=== PATIENT | female | born 1955 | race Caucasian/White ===

== ENCOUNTER 2019-10-19 16:53 | Outpatient (CLI) | payer BC, SELFPAY ==
--- NOTE | ~2019-10-19 | MM_ITS ---
EXAMINATION: MM screening [facility] w [facility] HISTORY: Screening mammogram TECHNIQUE: Craniocaudal and mediolateral oblique 3-D tomosynthesis images were obtained and synthetic 2-D images were generated. CAD analysis was submitted and interpreted. COMPARISON: 10/12/2018 bilateral digital screening mammogram 12/11/2016 diagnostic right digital mammogram and limited right breast ultrasound 12/03/2016 and 10/11/2014 bilateral digital screening mammogram examinations BREAST PARENCHYMAL COMPOSITION: The breasts are heterogeneously dense, which may obscure small masses . FINDINGS: Low-density circumscribed approximately 1.8 cm mass in the posterior mid outer right breast with halo sign, most consistent with benign cyst. There is a circumscribed 5 mm benign-appearing opacity in the upper central right breast nearby biops y marker. There is no evidence of suspicious mass, calcification, or architectural distortion to sugg est malignancy in either breast. There has been no suspicious interval change. IMPRESSION: 1. No mammographic evidence of malignancy. 2. Recommend routine screening mammography in one year. BI-RADS Category 2: Benign finding(s). Reviewed, dictated and finalized at location A. [facility]
== END 2019-10-19 16:54 | disposition home or self-care (01) ==
LOC: ANHIMG 16:56
PROVIDERS: PCP Family Medicine; Visit Provider Physician Assistant
DX: Z12.31 Encounter for screening mammogram for malignant neoplasm of breast (principal)
CPT/HCPCS: 77063; 77067

== ENCOUNTER 2020-10-18 16:22 | Outpatient (CLI) | payer BC, SELFPAY ==
--- NOTE | ~2020-10-18 | MM_ITS ---
EXAMINATION: MM screening [facility] w [facility] HISTORY: Screening TECHNIQUE: Craniocaudal and mediolateral oblique 3-D tomosynthesis images were obtained and synthetic 2-D images were generated. CAD analysis was submitted and interpreted. COMPARISON: No prior mammogram is available for comparison at this institution. BREAST PARENCHYMAL COMPOSITION: The breasts are heterogeneously dense, which may obscure small masses . FINDINGS: There is a possible new area of architectural distortion in the upper aspect of the right b reast on MLO view. Decreased size of right breast mass in the upper outer quadrant, previously charac terized as a cyst. There are benign bilateral breast calcifications. The left breast is stable withou t evidence for malignancy. IMPRESSION: 1. Possible new focal area of architectural distortion superiorly in the right breast on MLO view. 2. Additional mammographic views and possible breast ultrasound are recommended. BI-RADS Category 0: Incomplete: Needs additional imaging evaluation. Reviewed, dictated and finalized at location A. EACH LIBRARIAN IMPRESSION: 1. Possible new focal area of architectural distortion superiorly in the right breast on MLO view. 2. Additional mammographic views and possible breast ultrasound are recommended . BI-RADS Category 0: Incomplete: Needs additional imaging evaluation.
== END 2020-10-18 16:23 | disposition home or self-care (01) ==
PROVIDERS: PCP Family Medicine; Visit Provider Physician Assistant
DX: Z12.31 Encounter for screening mammogram for malignant neoplasm of breast (principal); R92.8 Other abnormal and inconclusive findings on diagnostic imaging of breast
CPT/HCPCS: 77063; 77067

== ENCOUNTER 2020-11-10 13:05 | Outpatient (CLI) | payer BC, SELFPAY ==
--- NOTE | ~2020-11-10 | MMUS_ITS ---
EXAMINATION: MM diagnostic mammo unilat RT, US breast RT limited HISTORY: Possible right breast architectural distortion on screening mammogram TECHNIQUE: Additional 3-D tomosynthesis images of the right breast were performed and synthetic 2-D i mages were generated. CAD analysis was submitted and interpreted. High resolution limited right breas t ultrasound was performed. COMPARISON: 10/18/2020, 10/19/2019, 10/12/2018 FINDINGS: MAMMOGRAPHIC FINDINGS: There is persistent architectural distortion with spot compression in the middle third of the upper b reast at the 12:00 location 5 cm from the nipple. This is most apparent on the tomosynthesis images. ULTRASOUND: There is no evidence of focal abnormal solid or cystic mass in the vicinity of the mammographic findi ng in question. IMPRESSION: 1. Right breast architectural distortion. 2. Tomosynthesis guided biopsy is recommended. BI-RADS category 4, suspicious findings. Reviewed, dictated and finalized at location A. IMPRESSION: 1. Right breast architectural distortion. 2. Tomosynthesis guided biopsy is recommended. BI-RADS category 4, suspicious findings.
== END 2020-11-10 13:06 | disposition home or self-care (01) ==
LOC: ANHIMG 13:07
PROVIDERS: PCP Family Medicine; Visit Provider Family Medicine
DX: N63.10 Unspecified lump in the right breast, unspecified quadrant (principal); R92.8 Other abnormal and inconclusive findings on diagnostic imaging of breast
CPT/HCPCS: 76642; 77065

== ENCOUNTER 2022-01-03 01:03 | Day surgery (SDC) | payer BC, SELFPAY ==
[2021-12-27 11:49] VITALS: BMI 25.2
[2022-01-03 08:36] VITALS: BP 106/50; PULSE 64; RESP 16; TEMP 36.4; O2SAT 99
--- NOTE | 2022-01-03 08:41 | WPDANESEPPF ---
Anes - Initial Pre Proc Eval Procedure: Operation Date: 01/03/22 09:45 Proposed Procedures p Esophagogastroduodenoscopy - Ward Garcia MD Date/Time: 01/03/22 08:41 Surgeon: Ward Garcia MD Pre Op Diagnosis: dysphagia Patient Data Age: 66 Gender: F Height: 1.78 m Weight: 80.7 kg Last Vital Signs Temp 36.4 C 01/03/22 08:36 Pulse 64 01/03/22 08:36 Resp 16 01/03/22 08:36 BP 106/50 L 01/03/22 08:36 Pulse Ox 99 01/03/22 08:36 Allergies Allergy/AdvReac Type Severity Reaction Status Date / Time omeprazole [From Prilosec] AdvReac Rash Verified 01/03/22 08:35 Home Medications Medication Instructions Recorded Confirmed Type atorvastatin 20 mg tablet 20 mg PO DAILY 01/25/20 01/03/22 History irbesartan 150 1 tablet PO DAILY 01/25/20 01/03/22 History mg-hydrochlorothiazide 12.5 mg tablet antiox.mv [id number] 1 cap PO DAILY 12/27/21 01/03/22 History [I-Caps] multivit with min-folic acid 1 tablet PO DAILY 12/27/21 01/03/22 History [Adult One Daily Multivitamin] tamoxifen 20 mg PO DAILY 12/27/21 01/03/22 History Patient hx anesthesia problems: none Family hx anesthesia problems: none Results Review: All pre-operative results and documents have been reviewed as part of the pre-operative evaluation. [facility] Past Medical History Medical History (Updated 01/25/20 @ 15:28 by SON Fry) Degenerative joint disease of knee High cholesterol Hypertension Knee effusion, right Right knee pain Seasonal allergies Sleep apnea Vision abnormalities Family History Family History Other Family history of arthritis Hypertension Social History Social History (Updated 01/25/20 @ 15:12 by Savanah Hayes, RT(R)) Smoking status: Former smoker Tobacco type: cigarettes Smoking end date: 08/18/03 Alcohol intake: current Drinks per week: 2 Alcohol use details: socially Substance use: current Substance use type: marijuana Living arrangements: with family Spiritual care concerns: No Anes - Eval Final PreProcedure Day of Procedure 01/03/22 08:41 Patient weight: normal Heart: regular rate and rhythm Lungs: clear to auscultation and normal air movement Airway: Mallampati scale class II Neurological: alert and oriented Last oral intake: >/= 8 hours ASA classification: III Emergent: no Anesthetic plan: proceed Anesthesia type and monitoring: general GIVS Results Review: All pre-operative results and documents have been reviewed as part of the pre-operative evaluation. Informed Consent: The patient's anesthetic plan and its attendant risks and benefits were discussed with the patient/family/POA. Questions were solicited and answers provided to the satisfaction of the patient/family/POA.
[2022-01-03] MEDS: LACTATED RINGERS 1,000 ML 150 ML IV CONT (08:46)
[2022-01-03] MEDS: AMPICILLIN 2 GM/NS 100 ML 2 GM/100 ML BAG IVPB (08:47)
--- NOTE | 2022-01-03 09:04 | WPDGICN ---
Assessment and Plan Assessment and plan (1) Dysphagia: Code(s): R13.10 - Dysphagia, unspecified Status: Acute Assessment and Plan: Patient has had intermittent difficulty with food catching the mid substernal portion of the chest. This been present over last several months and occurs intermittently. EGD is requested to evaluate and exclude esophageal narrowing. (2) Heartburn: Code(s): R12 - Heartburn Status: Acute Assessment and Plan: Patient has had intermittent heartburn apparently fairly responsive to [id number] antacids. Further recommendations may be given after endoscopy. GI Consult Note Consult date/time: 01/03/22 09:04 HPI: Antoinette Vale is a 66 year old female Presents for EGD. Patient states that she has had occasional heartburn and occasional dysphagia with food catching in the mid substernal portion the chest. This is improved with Tums and [id number]-htiwuyj antacids. She still only requires these medications intermittently. Symptoms have occurred over the last 3-6 months. Patient denies any bleeding or weight loss. She briefly was given a trial of omeprazole. But incidentally noted a rash 2 days later therefore has discontinued this medication but felt no need for to his symptoms have abated since then. She presents today for EGD to evaluate more thoroughly. Family history is noncontributory. Review of Systems Review of Systems: All systems reviewed & are unremarkable except as noted in HPI and below PMFSH Past Medical History Medical History (Updated 01/03/22 @ 09:05 by Ward Garcia MD) Degenerative joint disease of knee High cholesterol Hypertension Knee effusion, right Right knee pain Seasonal allergies Sleep apnea Vision abnormalities Family History Family History Other Family history of arthritis Hypertension Social History Social History (Updated 01/25/20 @ 15:12 by Savanah Hayes, RT(R)) Smoking status: Former smoker Tobacco type: cigarettes Smoking end date: 08/18/03 Alcohol intake: current Drinks per week: 2 Alcohol use details: socially Substance use: current Substance use type: marijuana Living arrangements: with family Spiritual care concerns: No Meds Home Medications and Allergies Home Medications Medication Instructions Recorded Confirmed Type atorvastatin 20 mg tablet 20 mg PO DAILY 01/25/20 01/03/22 History irbesartan 150 1 tablet PO DAILY 01/25/20 01/03/22 History mg-hydrochlorothiazide 12.5 mg tablet antiox.mv [id number] 1 cap PO DAILY 12/27/21 01/03/22 History [I-Caps] multivit with min-folic acid 1 tablet PO DAILY 12/27/21 01/03/22 History [Adult One Daily Multivitamin] tamoxifen 20 mg PO DAILY 12/27/21 01/03/22 History Allergies Allergy/AdvReac Type Severity Reaction Status Date / Time omeprazole [From Prilosec] AdvReac Rash Verified 01/03/22 08:35 Vital Signs Vital Signs - 24 hr 01/03/22 08:36 Temperature 97.6 F Pulse Rate 64 Respiratory Rate 16 Blood Pressure 106/50 L Pulse Oximetry 99 Exam Narrative: Physical exam reveals patient to be alert. Vital signs stable. HEENT exam is unremarkable. Patient is anicteric. Lungs are clear to auscultation and percussion. Heart is without murmur or extra sounds. Abdominal exam bowel sounds are present soft nontender with no organomegaly. Digital external rectal exam is normal.
[2022-01-03] MEDS: BENZOCAINE (*SP) 60 ML SPRAY CAN (HURRICAINE) 1 SPRAY MUCOUS MEM (09:36)
[2022-01-03 09:45] VITALS: BP 113/54; PULSE 63; RESP 18; O2SAT 100
[2022-01-03 09:55] VITALS: BP 106/50; PULSE 58; RESP 20; O2SAT 100
[2022-01-03 10:05] VITALS: BP 106/61; PULSE 56; RESP 18; O2SAT 100
== END 2022-01-03 10:15 | disposition home or self-care (01) ==
PROVIDERS: PCP Family Medicine; Visit Provider Internal Medicine Gastroenterology
PROC: 0DJ08ZZ Inspection of Upper Intestinal Tract, Via Natural or Artificial Opening Endoscopic (ICD-10-PCS; CPT 43235; principal; 2022-01-03 09:45)
DX: R12 Heartburn (principal); R13.10 Dysphagia, unspecified; I10 Essential (primary) hypertension; E78.00 Pure hypercholesterolemia, unspecified; G47.30 Sleep apnea, unspecified; Z87.891 Personal history of nicotine dependence; F12.90 Cannabis use, unspecified, uncomplicated
CPT/HCPCS: 43239; 87081; J0290; J2704; J7120